=== PATIENT | female | born 1940 | race Caucasian/White ===

== ENCOUNTER 2016-11-08 08:20 | Outpatient (CLI) | payer MEDICARE, OTHER ==
[2016-11-08 09:09] LABS: BASOPHILS # (AUTO) 0.1 10^3/uL (0.0-0.1); BASOPHILS % (AUTO) 1.2 %; EOSINOPHILS # (AUTO) 0.2 10^3/uL (0.0-0.7); EOSINOPHILS % (AUTO) 3.6 %; HCT - HEMATOCRIT 42.5 % (37.0-47.0); HGB - HEMOGLOBIN 14.9 g/dL (12.0-16.0); LYMPHOCYTES # (AUTO) 2.7 10^3/uL (1.5-3.5); LYMPHOCYTES % (AUTO) 41.5 %; MEAN CORPUSCULAR HEMOGLOBIN 31.4 pg (27.0-31.0); MEAN CORPUSCULAR VOLUME 89.9 fL (81.0-99.0); MEAN PLATELET VOLUME 6.8 fL (7.9-10.8); MONOCYTES # (AUTO) 0.5 10^3/uL (0.0-1.0); MONOCYTES % (AUTO) 8.4 %; NEUTROPHILS % (AUTO) 45.3 %; RED BLOOD COUNT 4.72 10^6/uL (4.20-5.40); RED CELL DISTRIBUTION WIDTH 13.3 % (12.0-15.0); UNCORRECTED WHITE BLOOD COUNT 6.5 x10^3/uL; WHITE BLOOD COUNT 6.5 x10^3/uL (4.8-10.8)
[2016-11-08 09:23] LABS: HEMOGLOBIN A1C 0.56 g/dL
[2016-11-08 09:27] LABS: ALBUMIN/GLOBULIN RATIO 1.6 (1.0-2.2); BILIRUBIN,TOTAL 0.8 mg/dL (0.2-1.0); BUN - BLOOD UREA NITROGEN 14 mg/dL (6-20); CALCIUM 9.4 mg/dL (8.5-10.3); CARBON DIOXIDE - CO2 27 mmol/L (21-32); CHLORIDE 103 mmol/L (101-111); CHOL/HDL RATIO 3.3 (<4.4); CHOLESTEROL 160 mg/dL; CREATININE 0.7 mg/dL (0.4-1.0); GFR - MDRD 82 (>89); GLUCOSE 103 mg/dL (70-100); HDL CHOLESTEROL 48 mg/dL; LDL/HDL RATIO 1.9 (<4.4); SODIUM 137 mmol/L (135-145); TOTAL PROTEIN 6.5 g/dL (6.7-8.2); TRIGLYCERIDES 94 mg/dL; VLDL CHOLESTEROL 19 mg/dL
== END 2016-11-08 08:21 | disposition home or self-care (01) ==
LOC: LAB 08:20
PROVIDERS: ATTEND Nurse Practitioner Primary Care
DX: I10 Essential (primary) hypertension (principal); R73.09 Other abnormal glucose; E78.2 Mixed hyperlipidemia
CPT/HCPCS: 36415; 80053; 80061; 83036; 84443; 85025

== ENCOUNTER 2016-11-22 08:35 | Outpatient (CLI) | payer MEDICARE, OTHER ==
--- NOTE | 2016-11-23 19:50 | Mammography Report ---
DIGITAL SCREENING MAMMOGRAM: 11/22/2016 CLINICAL INDICATION: A 76-year-old for screening. COMPARISON: 05/2014, 11/2012, 08/2011, 06/2009, 05/2008, 02/2007. TECHNIQUE: Routine CC and MLO projections were obtained of the breasts. The breasts again demonstrate heterogeneously dense fibroglandular parenchyma bilaterally. A few pun ctate, typically benign calcifications are present. No suspicious masses, clustered microcalcificati ons, or regions of architectural distortion are identified. IMPRESSION: BENIGN FINDINGS. RECOMMENDATION: ROUTINE ANNUAL SCREENING UNLESS OTHERWISE CLINICALLY INDICATED. BIRADS CATEGORY: 2, BENIGN FINDINGS. STANDARD QUALIFYING STATEMENTS 1. This examination was reviewed with the aid of Computed-Aided Detection (CAD). 2. A negative or benign imaging report should not delay biopsy if clinically suspicious findings are present. Consider surgical consultation if warranted. More than 5% of cancers are not identified b y imaging. 3. Dense breasts may obscure an underlying neoplasm. JOB #: [id number] EXT JOB #:[id number]
== END 2016-11-22 08:36 | disposition home or self-care (01) ==
LOC: DI 08:35
PROVIDERS: ATTEND Nurse Practitioner Primary Care
DX: Z12.31 Encounter for screening mammogram for malignant neoplasm of breast (principal)
CPT/HCPCS: 77067

== ENCOUNTER 2017-03-20 09:25 | Day surgery (SDC) | payer MEDICARE, OTHER ==
[2017-03-20] MEDS ORDERED: LACTATED RINGERS 1,000 ML IV ONE (10:00)
[2017-03-20] MEDS ORDERED: GLUCAGON 1 MG/ML VIAL IM ONE (10:48)
[2017-03-20] MEDS ORDERED: fentaNYL 100 MCG/2 ML VIAL IVP ONE (10:48)
[2017-03-20] MEDS ORDERED: MIDAZOLAM 2 MG/2 ML VIAL IVP ONE (10:48)
[2017-03-20 11:41] VITALS: BP 103/62
== END 2017-03-20 09:26 | disposition home or self-care (01) ==
LOC: SDS 09:25
PROVIDERS: ATTEND Surgery
PROC: 0DBL8ZX Excision of Transverse Colon, Via Natural or Artificial Opening Endoscopic, Diagnostic (ICD-10-PCS; principal; 2017-03-20 10:30)
DX: Z12.11 Encounter for screening for malignant neoplasm of colon (principal); D12.3 Benign neoplasm of transverse colon; Z80.0 Family history of malignant neoplasm of digestive organs; K57.30 Diverticulosis of large intestine without perforation or abscess without bleeding; K64.8 Other hemorrhoids; I10 Essential (primary) hypertension; Z79.82 Long term (current) use of aspirin
CPT/HCPCS: 45380; J7120

== ENCOUNTER 2017-11-13 07:57 | Outpatient (CLI) | payer MEDICARE, OTHER ==
[2017-11-13 08:42] LABS: BASOPHILS % (AUTO) 0.3 %; EOSINOPHILS # (AUTO) 0.2 10^3/uL (0.0-0.7); EOSINOPHILS % (AUTO) 2.6 %; HGB - HEMOGLOBIN 14.9 g/dL (12.0-16.0); LYMPHOCYTES # (AUTO) 2.2 10^3/uL (1.5-3.5); LYMPHOCYTES % (AUTO) 23.2 %; MEAN CORPUSCULAR HEMOGLOBIN 31.6 pg (27.0-31.0); MEAN CORPUSCULAR HGB CONC 35.2 g/dL (32.0-36.0); MEAN CORPUSCULAR VOLUME 89.6 fL (81.0-99.0); MEAN PLATELET VOLUME 7.2 fL (7.9-10.8); MONOCYTES # (AUTO) 0.6 10^3/uL (0.0-1.0); MONOCYTES % (AUTO) 6.8 %; NEUTROPHILS # (AUTO) 6.3 10^3/uL (1.5-6.6); NEUTROPHILS % (AUTO) 67.1 %; PLT - PLATELET COUNT 290 10^3/uL (130-450); RED BLOOD COUNT 4.72 10^6/uL (4.20-5.40); RED CELL DISTRIBUTION WIDTH 13.2 % (12.0-15.0); WHITE BLOOD COUNT 9.3 x10^3/uL (4.8-10.8)
[2017-11-13 09:07] LABS: ALBUMIN/GLOBULIN RATIO 1.5 (1.0-2.2); ALKALINE PHOSPHATASE 71 IU/L (42-121); ALT ALANINE AMINOTRANSFERASE 23 IU/L (10-60); AST ASPARTATE AMINOTRANSFERASE 21 IU/L (10-42); BILIRUBIN,TOTAL 0.9 mg/dL (0.2-1.0); BUN - BLOOD UREA NITROGEN 14 mg/dL (6-20); CALCIUM 9.4 mg/dL (8.5-10.3); CARBON DIOXIDE - CO2 29 mmol/L (21-32); CHLORIDE 104 mmol/L (101-111); CHOL/HDL RATIO 3.5 (<4.4); CHOLESTEROL 149 mg/dL; CREATININE 0.6 mg/dL (0.4-1.0); GFR - MDRD 97 (>89); GLUCOSE 103 mg/dL (70-100); HDL CHOLESTEROL 43 mg/dL; LDL CHOLESTEROL,CALCULATED 76 mg/dL; LDL/HDL RATIO 1.8 (<4.4); SODIUM 139 mmol/L (135-145); TOTAL PROTEIN 6.6 g/dL (6.7-8.2); VLDL CHOLESTEROL 30 mg/dL
[2017-11-13 09:31] LABS: HB2 TOTAL 16.2 g/dL; HEMOGLOBIN A1C 0.53 g/dL; HEMOGLOBIN A1C % 5.1 % (4.6-6.2)
== END 2017-11-13 07:58 | disposition home or self-care (01) ==
LOC: LAB 07:57
PROVIDERS: ATTEND Nurse Practitioner Primary Care
DX: R73.01 Impaired fasting glucose (principal); Z79.899 Other long term (current) drug therapy; I10 Essential (primary) hypertension; E78.5 Hyperlipidemia, unspecified
CPT/HCPCS: 36415; 80053; 80061; 83036; 83721; 85025

== ENCOUNTER 2018-12-18 08:30 | Outpatient (CLI) | payer MEDICARE, OTHER ==
[2018-12-18 09:13] LABS: BASOPHILS # (AUTO) 0.1 10^3/uL (0.0-0.1); BASOPHILS % (AUTO) 1.1 %; EOSINOPHILS # (AUTO) 0.2 10^3/uL (0.0-0.7); EOSINOPHILS % (AUTO) 2.8 %; HGB - HEMOGLOBIN 14.4 g/dL (12.0-16.0); LYMPHOCYTES # (AUTO) 2.2 10^3/uL (1.5-3.5); LYMPHOCYTES % (AUTO) 38.9 %; MEAN CORPUSCULAR HEMOGLOBIN 31.2 pg (27.0-31.0); MONOCYTES # (AUTO) 0.6 10^3/uL (0.0-1.0); MONOCYTES % (AUTO) 9.8 %; NEUTROPHILS # (AUTO) 2.7 10^3/uL (1.5-6.6); NEUTROPHILS % (AUTO) 47.2 %; PLT - PLATELET COUNT 264 10^3/uL (130-450); RED BLOOD COUNT 4.61 10^6/uL (4.20-5.40); RED CELL DISTRIBUTION WIDTH 12.8 % (12.0-15.0); WHITE BLOOD COUNT 5.7 x10^3/uL (4.8-10.8)
[2018-12-18 09:29] LABS: ALBUMIN 3.8 g/dL (3.2-5.5); ALBUMIN/GLOBULIN RATIO 1.4 (1.0-2.2); ALKALINE PHOSPHATASE 68 IU/L (42-121); ALT ALANINE AMINOTRANSFERASE 27 IU/L (10-60); AST ASPARTATE AMINOTRANSFERASE 23 IU/L (10-42); BILIRUBIN,TOTAL 0.8 mg/dL (0.2-1.0); BUN - BLOOD UREA NITROGEN 14 mg/dL (6-20); CALCIUM 9.5 mg/dL (8.5-10.3); CARBON DIOXIDE - CO2 29 mmol/L (21-32); CHLORIDE 105 mmol/L (101-111); CHOLESTEROL 140 mg/dL; CREATININE 0.6 mg/dL (0.4-1.0); GFR - MDRD 97 (>89); GLUCOSE 106 mg/dL (70-100); HDL CHOLESTEROL 46 mg/dL; LDL CHOLESTEROL,CALCULATED 74 mg/dL; LDL/HDL RATIO 1.6 (<4.4); MAGNESIUM 2.1 mg/dL (1.7-2.8); SODIUM 140 mmol/L (135-145); TOTAL PROTEIN 6.5 g/dL (6.7-8.2); VLDL CHOLESTEROL 20 mg/dL
== END 2018-12-18 08:31 | disposition home or self-care (01) ==
LOC: LAB 08:30
PROVIDERS: ATTEND Nurse Practitioner
DX: Z79.899 Other long term (current) drug therapy (principal); R73.01 Impaired fasting glucose; E78.5 Hyperlipidemia, unspecified; I10 Essential (primary) hypertension
CPT/HCPCS: 36415; 80053; 80061; 83721; 83735; 84443; 85025

== ENCOUNTER 2019-01-23 07:39 | Outpatient (CLI) | payer MEDICARE, OTHER ==
--- NOTE | 2019-01-23 09:02 | Mammography Report ---
Reason: SCREENING MAMMO Procedure Date: 01/23/2019 Accession Number: [id number] / [id number] Procedure: STU - Screening Mammo w/Alphonse CPT Code: FULL RESULT: EXAM: Screening Mammo w/Alphonse DATE: 01/23/2019 8:15 AM CLINICAL HISTORY: Screening encounter. Family history of breast cancer in the daughter at the age of 53. TECHNIQUE: (B) - Bilateral CC and MLO views were obtained. COMPARISON: 11/22/2016 through 07/06/2009. PARENCHYMAL PATTERN: (D) - The breast(s) demonstrate(s) heterogeneously dense fibroglandular parenchyma. FINDINGS: There are no suspicious masses, calcifications, or areas of distortion. IMPRESSION: Negative examination. BI-RADS category 1. RECOMMENDATION: (ANNUAL) - Recommend routine annual screening mammography. BI-RADS CATEGORY: (1) - Negative. STANDARD QUALIFYING STATEMENTS: 1. This examination was not reviewed with the aid of Computer-Aided Detection (CAD). 2. A negative or benign imaging report should not preclude biopsy if clinically suspicious findings are present. 3. Dense breasts may obscure an underlying neoplasm. 4. This examination was reviewed with the aid of 3D breast imaging (tomosynthesis).
== END 2019-01-23 07:40 | disposition home or self-care (01) ==
LOC: DI 07:39
PROVIDERS: ATTEND Nurse Practitioner
DX: Z12.31 Encounter for screening mammogram for malignant neoplasm of breast (principal)
CPT/HCPCS: 77063; 77067

== ENCOUNTER 2019-01-23 07:42 | Outpatient (CLI) | payer MEDICARE, OTHER ==
--- NOTE | 2019-01-23 09:59 | DEXA Report ---
Reason: MENOPAUSE Procedure Date: 01/23/2019 Accession Number: [id number] / [id number] Procedure: DEX - Dexa Spine and/or Hip CPT Code: FULL RESULT: EXAM: Dexa Spine and/or Hip DATE: 01/23/2019 8:22 AM CLINICAL HISTORY: MENOPAUSE TECHNIQUE: Dual energy x-ray absorptiometry (DXA) was performed on a 2080 [employer] System. Regions measured are the AP Spine, femoral neck, and if needed forearm. COMPARISON: 10/18/2015. In accordance with the International Society for Clinical Densitometry (ISCD) guidelines, data from previous exams may be reanalyzed using current recommendations and techniques. This is done to allow a more accurate basis for comparison with the current study. FINDINGS: The data for the lumbar spine is as follows: BMD (g/cm/cm) T-SCORE Z-SCORE REGION L1 0.988 -1.2 0.0 L2 1.101 -0.8 0.3 L3 1.221 0.2 1.3 L4 1.303 0.9 2.0 TOTAL 1.162 -0.2 1.0 NOTE: All evaluable vertebrae are used for classification The data for the hip is as follows: BMD (g/cm/cm) T-SCORE Z-SCORE REGION Neck 1.057 0.1 1.7 TOTAL 1.027 0.2 1.5 NOTE: The femoral neck or total proximal femur, whichever is lowest, is used for classification. IMPRESSION: THE WHO CLASSIFICATION BASED ON THE INTERNATIONAL REFERENCE STANDARD IS NORMAL. THE FRACTURE RISK IS NOT INCREASED. RECOMMENDATION: Patients with diagnosis of osteoporosis or osteopenia should have regular bone mineral density assessment. For those eligible for Medicare, routine testing is allowed once every 2 years. Testing frequency can be increased for patients who have rapidly progressing disease or for those who are receiving medical therapy to restore bone mass. COMMENT: World Health Organization (WHO) definitions for osteoporosis and osteopenia: NORMAL BMD: T-score at -1.0 or higher, fracture risk is low OSTEOPENIA BMD: T-score between -1.0 and -2.5, fracture risk is increased. OSTEOPOROSIS BMD: T-score at -2.5 or lower, fracture risk is high. National Osteoporosis Foundation recommends: 1. Obtain adequate dietary calcium (at least 1200 mg per day) and vitamin D (400-800 international units per day). 2. Participate, as appropriate, in regular weightbearing and muscle-strengthening exercise. 3. Avoid tobacco use and reduce alcohol and caffeine intake. 4. For more detailed information see the website at www.NOF.org.
== END 2019-01-23 07:43 | disposition home or self-care (01) ==
LOC: DI 07:42
PROVIDERS: ATTEND Nurse Practitioner
DX: Z78.0 Asymptomatic menopausal state (principal)
CPT/HCPCS: 77080

== ENCOUNTER 2021-01-11 15:54 | Outpatient (CLI) | payer MEDICARE, OTHER ==
--- NOTE | 2021-01-12 10:20 | Ultrasound Report ---
PROCEDURE: Retroperitoneal INDICATIONS: BILATERAL RENAL CYSTS TECHNIQUE: Real-time scanning was performed of the retroperitoneal organs, with image documentation. COMPARISON: None. FINDINGS: Kidneys: Kidneys are normal in size. Right kidney measures 11.8 cm long; left kidney measures 12 po int cm long. Right renal cortical thickness is 1.4 cm; left renal cortical thickness is 2.0 cm. No solid masses, hydronephrosis, or nephrolithiasis. There are bilateral renal cysts, measuring up to 2 .7 cm on the right and up to 6.1 x 5.2 x 5.9 cm on the left. Right renal cyst is not well seen second riri to body habitus and bowel gas. Prevoid bladder volume measures 199 cc. The postvoid residual measures 18 cc. IMPRESSION: Bilateral renal cysts, not well sonographically visualized as above. No hydronephrosis. Reviewed by: Cameron Ortega MD on 01/12/2021 10:19 AM PDT Approved by: Cameron Ortega MD on 01/12/2021 10:19 AM PDT Station ID: [id number]
== END 2021-01-11 15:55 | disposition home or self-care (01) ==
LOC: DI 15:54
PROVIDERS: ATTEND Family Medicine
DX: N28.1 Cyst of kidney, acquired (principal)

== ENCOUNTER 2021-08-06 10:04 | Outpatient (CLI) | payer MEDICARE, OTHER ==
[2021-08-06 14:40] LABS: BASOPHILS % (AUTO) 0.6 %; EOSINOPHILS # (AUTO) 0.2 10^3/uL (0.0-0.7); EOSINOPHILS % (AUTO) 2.6 %; HCT - HEMATOCRIT 42.8 % (37.0-47.0); HGB - HEMOGLOBIN 14.2 g/dL (12.0-16.0); MEAN CORPUSCULAR HGB CONC 33.2 g/dL (32.0-36.0); MEAN CORPUSCULAR VOLUME 90.3 fL (81.0-99.0); MEAN PLATELET VOLUME 9.3 fL (7.9-10.8); MONOCYTES # (AUTO) 0.8 10^3/uL (0.0-1.0); MONOCYTES % (AUTO) 11.7 %; NEUTROPHILS # (AUTO) 3.5 10^3/uL (1.5-6.6); NEUTROPHILS % (AUTO) 53.8 %; PLT - PLATELET COUNT 298 10^3/uL (130-450); RED BLOOD COUNT 4.74 10^6/uL (4.20-5.40); RED CELL DISTRIBUTION WIDTH 12.7 % (12.0-15.0); WHITE BLOOD COUNT 6.6 x10^3/uL (4.8-10.8)
[2021-08-06 15:02] LABS: ALBUMIN 3.8 g/dL (3.2-5.5); ALBUMIN/GLOBULIN RATIO 1.4 (1.0-2.2); ALKALINE PHOSPHATASE 73 IU/L (42-121); ALT ALANINE AMINOTRANSFERASE 26 IU/L (10-60); AST ASPARTATE AMINOTRANSFERASE 24 IU/L (10-42); BILIRUBIN,TOTAL 0.5 mg/dL (0.2-1.0); BUN - BLOOD UREA NITROGEN 15 mg/dL (6-20); CALCIUM 9.3 mg/dL (8.5-10.3); CARBON DIOXIDE - CO2 25 mmol/L (21-32); CHLORIDE 101 mmol/L (101-111); CHOL/HDL RATIO 3.5 (<4.4); CHOLESTEROL 152 mg/dL; CREATININE 0.6 mg/dL (0.4-1.0); GFR - MDRD 97 (>89); GLUCOSE 106 mg/dL (70-100); HDL CHOLESTEROL 44 mg/dL; LDL CHOLESTEROL,CALCULATED 76 mg/dL; LDL/HDL RATIO 1.7 (<4.4); POTASSIUM 3.9 mmol/L (3.5-5.0); SODIUM 135 mmol/L (135-145); TOTAL PROTEIN 6.6 g/dL (6.7-8.2); TRIGLYCERIDES 160 mg/dL; VLDL CHOLESTEROL 32 mg/dL
[2021-08-06 15:09] LABS: THYROID STIMULATING HORMONE 1.32 uIU/mL (0.34-5.60)
[2021-08-06 21:44] LABS: ESTIMATED AVERAGE GLUCOSE 103 mg/dL (70-100); HEMOGLOBIN A1c% 5.2 % (4.27-6.07)
== END 2021-08-06 10:05 | disposition home or self-care (01) ==
LOC: LAB.N 10:04
PROVIDERS: ATTEND Family Medicine
DX: G43.909 Migraine, unspecified, not intractable, without status migrainosus (principal); R52 Pain, unspecified; R73.01 Impaired fasting glucose; E78.5 Hyperlipidemia, unspecified; I10 Essential (primary) hypertension
CPT/HCPCS: 36415; 80053; 80061; 83036; 83721; 84443; 85025

== ENCOUNTER 2021-12-06 11:14 | Outpatient (CLI) | payer MEDICARE, OTHER ==
--- NOTE | 2021-12-07 11:09 | Mammography Report ---
BILATERAL DIGITAL SCREENING MAMMOGRAM 3D/2D: 12/06/2021 CLINICAL: Routine screening. Comparison is made to exams dated: 01/23/2019 mammogram, 11/22/2016 mammogram, 05/14/2014 mammogram, an d 11/08/2012 mammogram - [facility]. Both breasts are heterogeneously dense, which may obscure small masses (category c / 51-75% glandula r tissue). No significant masses, calcifications, or other findings are seen in either breast. There has been no significant interval change. IMPRESSION: NEGATIVE There is no mammographic evidence of malignancy. A 1 year screening mammogram is recommended. Based on the Tyrer Cuzick model (a risk assessment model) the patients lifetime risk is 4.6% and her 10 year risk is 0.0%. According to the ACR, ACS, and NCCN guidelines, an annual breast MRI exam aj g with mammogram is recommended if the patients lifetime risk is 20% or greater. This exam was interpreted at Station ID: [id number]. NOTE: For mammograms, a report in lay terms will be sent to the patient. Approximately 15% of breast malignancies will not be visualized mammographically. In the management of a palpable breast mass, a negative mammogram must not discourage biopsy of a clinically suspicious lesion. Electronically Signed By: Lee Brantley M.D. [email or web address]:12/06/2021 13:16:33 ACR BI-RADS Category 1: Negative 3341F PARENCHYMAL PATTERN: (D) - The breast(s) demonstrate(s) heterogeneously dense fibroglandular ej carroll. BI-RADS CATEGORY: (1) - 1 RECOMMENDATION: (ANNUAL) - Recommend routine annual screening mammography. [id number] 1 year screening LATERALITY: (B)
== END 2021-12-06 11:15 | disposition home or self-care (01) ==
LOC: DI 11:14
PROVIDERS: ATTEND Family Medicine
DX: Z12.31 Encounter for screening mammogram for malignant neoplasm of breast (principal)

== ENCOUNTER 2022-01-31 08:54 | Outpatient (CLI) | payer MEDICARE, OTHER ==
[2022-01-31 09:09] LABS: BASOPHILS % (AUTO) 0.6 %; EOSINOPHILS # (AUTO) 0.2 10^3/uL (0.0-0.7); EOSINOPHILS % (AUTO) 2.7 %; HCT - HEMATOCRIT 45.8 % (37.0-47.0); HGB - HEMOGLOBIN 15.4 g/dL (12.0-16.0); LYMPHOCYTES # (AUTO) 2.5 10^3/uL (1.5-3.5); LYMPHOCYTES % (AUTO) 35.6 %; MEAN CORPUSCULAR HEMOGLOBIN 30.4 pg (27.0-31.0); MEAN CORPUSCULAR HGB CONC 33.6 g/dL (32.0-36.0); MEAN CORPUSCULAR VOLUME 90.5 fL (81.0-99.0); MEAN PLATELET VOLUME 8.6 fL (7.9-10.8); MONOCYTES # (AUTO) 0.8 10^3/uL (0.0-1.0); MONOCYTES % (AUTO) 10.8 %; NEUTROPHILS # (AUTO) 3.5 10^3/uL (1.5-6.6); PLT - PLATELET COUNT 271 10^3/uL (130-450); RED BLOOD COUNT 5.06 10^6/uL (4.20-5.40); RED CELL DISTRIBUTION WIDTH 12.9 % (12.0-15.0)
[2022-01-31 09:34] LABS: ALBUMIN/GLOBULIN RATIO 1.5 (1.0-2.2); ALKALINE PHOSPHATASE 81 IU/L (42-121); ALT ALANINE AMINOTRANSFERASE 24 IU/L (10-60); AST ASPARTATE AMINOTRANSFERASE 21 IU/L (10-42); BILIRUBIN,TOTAL 0.8 mg/dL (0.2-1.0); BUN - BLOOD UREA NITROGEN 16 mg/dL (6-20); CALCIUM 9.8 mg/dL (8.5-10.3); CARBON DIOXIDE - CO2 29 mmol/L (21-32); CHLORIDE 101 mmol/L (101-111); CHOL/HDL RATIO 3.9 (<4.4); CHOLESTEROL 153 mg/dL; CREATININE 0.6 mg/dL (0.4-1.0); GFR - MDRD 96 (>89); GLUCOSE 105 mg/dL (70-100); HDL CHOLESTEROL 39 mg/dL; LDL CHOLESTEROL,CALCULATED 93 mg/dL; LDL/HDL RATIO 2.4 (<4.4); POTASSIUM 4.3 mmol/L (3.5-5.0); SODIUM 139 mmol/L (135-145); TOTAL PROTEIN 6.7 g/dL (6.7-8.2); TRIGLYCERIDES 104 mg/dL; VLDL CHOLESTEROL 21 mg/dL
[2022-01-31 09:42] LABS: THYROID STIMULATING HORMONE 2.85 uIU/mL (0.34-5.60)
[2022-01-31 12:49] LABS: ESTIMATED AVERAGE GLUCOSE 108 mg/dL (70-100); HEMOGLOBIN A1c% 5.4 % (4.27-6.07)
== END 2022-01-31 08:55 | disposition home or self-care (01) ==
LOC: LAB 08:54
PROVIDERS: ATTEND Family Medicine
DX: I10 Essential (primary) hypertension (principal); M85.80 Other specified disorders of bone density and structure, unspecified site; D86.3 Sarcoidosis of skin; K57.90 Diverticulosis of intestine, part unspecified, without perforation or abscess without bleeding; K58.9 Irritable bowel syndrome, unspecified; R73.01 Impaired fasting glucose; E78.5 Hyperlipidemia, unspecified
CPT/HCPCS: 36415; 80053; 80061; 83036; 83721; 84443; 85025

== ENCOUNTER 2022-06-27 13:28 | Outpatient (CLI) | payer MEDICARE, OTHER ==
--- NOTE | 2022-06-27 14:13 | XRAY Report ---
PROCEDURE: Chest 2 View X-Ray INDICATIONS: CHRONIC COUGH TECHNIQUE: 2 views of the chest were acquired. COMPARISON: None. FINDINGS: Surgical changes and devices: Fixation hardware in visualized lumbar spine is seen.. Lungs and pleura: No pleural effusions or pneumothorax. Lungs are clear. Mediastinum: Mediastinal contours are normal. Heart size is mildly enlarged. Bones and chest wall: No suspicious bony abnormalities. Soft tissues appear unremarkable. IMPRESSION: No acute cardiopulmonary pathology. Reviewed by: Raffi Bell MD on 06/27/2022 1:12 PM AKDT Approved by: Raffi Bell MD on 06/27/2022 1:12 PM AKDT Station ID: [id number]
== END 2022-06-27 13:29 | disposition home or self-care (01) ==
LOC: DI 13:28
PROVIDERS: ATTEND Physician Assistant
DX: R05.3 Chronic cough (principal)

== ENCOUNTER 2022-10-05 06:51 | Day surgery (SDC) | payer MEDICARE, OTHER ==
[2022-10-05] MEDS ORDERED: LACTATED RINGERS 1,000 ML IV ONE ×2 (06:53→08:14)
[2022-10-05] MEDS ORDERED: PROPOFOL 500 MG/50 ML 500 MG/50 ML VIAL ONE (06:55)
--- NOTE | 2022-10-05 07:28 | ANESTHESIA ---
Pre-Anesthesia VS, & Labs - Diagnosis hx colon polyps - Procedure colonoscopy Vital Signs: Temp Pulse Resp BP Pulse Ox O2 Flow Rate 36.0 C L 62 16 138/80 H 96 0 10/05/22 07:03 10/05/22 07:03 10/05/22 07:03 10/05/22 07:03 10/05/22 07:03 10/05/22 07:03 Height: 5 ft 5 in Weight (kg): 82 kg Body Mass Index: 30.0 BMI Classification: Obese - NPO >8 hours - Is Patient ?: No - Lab Results Lab results reviewed: Yes Home Medications and Allergies Ascorbic Acid [Vitamin C] 500 mg PO DAILY 03/19/17 Atorvastatin Calcium 40 mg PO DAILY 03/19/17 Calcium Carbonate/Vitamin D3 [Calcium 600 + Vit D 400 Tablet] 1 each PO DAILY 03/19/17 Losartan [Cozaar] 25 mg PO DAILY 03/19/17 Multivitamin [Multiple Vitamins] 1 each PO DAILY 03/19/17 Propranolol [Inderal] 20 mg PO BID 03/19/17 Allergies/Adverse Reactions: Allergies Allergy/AdvReac Type Severity Reaction Status Date / Time Penicillins Allergy Rash Verified 10/04/22 12:14 tetracycline Allergy Rash Verified 10/04/22 12:14 Anes History & Medical History - Anesthetic History Anesthesia Complications: reports: No previous complications Family history of Anesthesia Complications: Denies Family history of Malignant Hyperthermia: Denies - Medical History Cardiovascular: reports: Hypertension, High cholesterol, Murmur Pulmonary: reports: None Gastrointestinal: reports: GERD Urinary: reports: None Endocrine/Autoimmune: reports: Other Blood Disorders: reports: None - Surgical History General: reports: Appendectomy, Colonoscopy Eyes Ears Nose Throat (EENT): reports: Tonsil/Adenoidectomy Gynecologic: reports: section, Hysterectomy Orthopedic: reports: Knee replacement Exam General: Alert, Oriented x3, Cooperative Dental: WNL Mouth Openin Fingerbreadth Neck Mobility: Normal Mallampati classification: II Thyromental Distance: 4-6 cm Respiratory: Lungs clear Cardiovascular: Regular rate Plan Anesthesia Type: MAC Consent for Procedure(s) Verified and Reviewed: Yes Code Status: Attempt Resuscitation ASA classification: 2-Mild systemic disease Is this case an emergency?: No
[2022-10-05] MEDS ORDERED: ePHEDrine 50 MG/ML VIAL IVP ONE (08:02)
[2022-10-05 08:41] VITALS: BP 115/64
--- NOTE | 2022-10-05 09:06 | ANESTHESIA POST OP EVALUATION ---
Anesthesia Post Eval - Post Anesthesia Eval Vitals: Last Vital Signs Temp 36.2 C L 10/05/22 08:14 Pulse 70 10/05/22 08:38 Resp 12 10/05/22 08:38 BP 115/64 10/05/22 08:38 Pulse Ox 95 10/05/22 08:38 O2 Flow Rate 0 10/05/22 07:03 CV Function Including HR & BP: Stable Pain Control: Satisfactory Nausea & Vomiting: Negative Mental Status: Baseline Respiratory Status: Airway Patent Hydration Status: Satisfactory Anesthesia Complications: None
== END 2022-10-05 06:52 | disposition home or self-care (01) ==
LOC: SDS 06:51
PROVIDERS: ATTEND Surgery
PROC: 0DBK8ZX Excision of Ascending Colon, Via Natural or Artificial Opening Endoscopic, Diagnostic (ICD-10-PCS; principal; 2022-10-05 08:30)
DX: Z12.11 Encounter for screening for malignant neoplasm of colon (principal); K63.5 Polyp of colon; K57.30 Diverticulosis of large intestine without perforation or abscess without bleeding; Z80.0 Family history of malignant neoplasm of digestive organs; I10 Essential (primary) hypertension; E66.9 Obesity, unspecified; Z68.30 Body mass index [BMI] 30.0-30.9, adult
CPT/HCPCS: 45380; J7120

== ENCOUNTER 2022-12-25 11:08 | Outpatient (CLI) | payer MEDICARE, OTHER ==
--- NOTE | 2022-12-26 09:30 | Mammography Report ---
BILATERAL DIGITAL SCREENING MAMMOGRAM 3D/2D: 12/25/2022 CLINICAL: Routine screening. Comparison is made to exams dated: 12/06/2021 mammogram, 01/23/2019 mammogram, 11/22/2016 mammogram, mammogram, and 11/08/2012 mammogram - [facility]. Both breasts are heterogeneously dense, which may obscure small masses (category c / 51-75% glandular tissue). There is a possible developing irregular high density asymmetry with a spiculated margin in the left breast at 4 o'clock anterior depth. This is more prominent. No other significant masses, calcifications, or other findings are seen in either breast. IMPRESSION: INCOMPLETE: NEEDS ADDITIONAL IMAGING EVALUATION The possible developing irregular high density asymmetry in the left breast is indeterminate. Additi onal views with possible ultrasound are recommended. Based on the Tyrer Cuzick model (a risk assessment model) the patients lifetime risk is 3.9% and her 10 year risk is 0.0%. According to the ACR, ACS, and NCCN guidelines, an annual breast MRI exam aj g with mammogram is recommended if the patients lifetime risk is 20% or greater. This exam was interpreted at Station ID: [id number]. NOTE: For mammograms, a report in lay terms will be sent to the patient. Approximately 15% of breast malignancies will not be visualized mammographically. In the management of a palpable breast mass, a negative mammogram must not discourage biopsy of a clinically suspicious lesion. Electronically Signed By: Ya [email or web address]/penrad:12/25/2022 16:33:44 ACR BI-RADS Category 0: Incomplete 3340F PARENCHYMAL PATTERN: (D) - The breast(s) demonstrate(s) heterogeneously dense fibroglandular parenchy ma. BI-RADS CATEGORY: (0) - 0 Mammo and [place] [id number] Immediate follow-up LATERALITY: (B)
== END 2022-12-25 11:09 | disposition home or self-care (01) ==
LOC: DI 11:08
DX: Z12.31 Encounter for screening mammogram for malignant neoplasm of breast (principal); R92.8 Other abnormal and inconclusive findings on diagnostic imaging of breast

== ENCOUNTER 2023-01-16 10:45 | Outpatient (CLI) | payer MEDICARE, OTHER ==
--- NOTE | 2023-01-16 16:21 | Mammography Report ---
UNILATERAL LEFT DIGITAL DIAGNOSTIC MAMMOGRAM 3D/2D WITH SPOT COMPRESSION: 01/16/2023 CLINICAL: Patient returns today to evaluate a focal asymmetry in the left breast. Comparison is made to exams dated: 12/25/2022 mammogram, 12/06/2021 mammogram, 01/23/2019 mammogram, mammogram, and 05/14/2014 mammogram - [facility]. The left breast is heterogeneously dense, which may obscure small masses (category c / 51-75% glandul ar tissue). There is a possible asymmetry in the left breast at 4 o'clock anterior depth. This is not seen in ad ditional views. No other significant masses or calcifications are seen in the breast. IMPRESSION: NEGATIVE There is no mammographic evidence of malignancy. The possible asymmetry in the left breast is consistent with fibroglandular tissue and is benign. A 1 year screening mammogram is recommended. Based on the Tyrer Cuzick model (a risk assessment model) the patients lifetime risk is 3.9% and her 10 year risk is 0.0%. According to the ACR, ACS, and NCCN guidelines, an annual breast MRI exam aj g with mammogram is recommended if the patients lifetime risk is 20% or greater. This exam was interpreted at Station ID: [id number]. NOTE: For mammograms, a report in lay terms will be sent to the patient. Approximately 15% of breast malignancies will not be visualized mammographically. In the management of a palpable breast mass, a negative mammogram must not discourage biopsy of a clinically suspicious lesion. Electronically Signed By: Craig Hernández M.D. slc/:01/16/2023 11:30:02 ACR BI-RADS Category 1: Negative 3341F PARENCHYMAL PATTERN: (D) - The breast(s) demonstrate(s) heterogeneously dense fibroglandular ej carroll. BI-RADS CATEGORY: (1) - 1 Mammogram [id number] 1 year screening LATERALITY: (B)
== END 2023-01-16 10:46 | disposition home or self-care (01) ==
LOC: DI 10:45
PROVIDERS: ATTEND Family Medicine
DX: R92.8 Other abnormal and inconclusive findings on diagnostic imaging of breast (principal); R92.332 Mammographic heterogeneous density, left breast

== ENCOUNTER 2023-05-24 08:44 | Outpatient (CLI) | payer MEDICARE, OTHER ==
[2023-05-24 09:04] LABS: BASOPHILS # (AUTO) 0.1 10^3/uL (0.0-0.1); BASOPHILS % (AUTO) 0.9 %; EOSINOPHILS # (AUTO) 0.2 10^3/uL (0.0-0.7); HCT - HEMATOCRIT 42.9 % (37.0-47.0); HGB - HEMOGLOBIN 14.4 g/dL (12.0-16.0); LYMPHOCYTES # (AUTO) 2.2 10^3/uL (1.5-3.5); MEAN CORPUSCULAR HGB CONC 33.6 g/dL (32.0-36.0); MEAN CORPUSCULAR VOLUME 92.5 fL (81.0-99.0); MEAN PLATELET VOLUME 8.5 fL (7.9-10.8); MONOCYTES # (AUTO) 0.6 10^3/uL (0.0-1.0); MONOCYTES % (AUTO) 11.1 %; NEUTROPHILS # (AUTO) 2.5 10^3/uL (1.5-6.6); NEUTROPHILS % (AUTO) 44.6 %; PLT - PLATELET COUNT 246 10^3/uL (130-450); RED BLOOD COUNT 4.64 10^6/uL (4.20-5.40); RED CELL DISTRIBUTION WIDTH 12.6 % (12.0-15.0); WHITE BLOOD COUNT 5.6 x10^3/uL (4.8-10.8)
[2023-05-24 09:20] LABS: ALBUMIN 4.1 g/dL (3.2-5.5); ALBUMIN/GLOBULIN RATIO 1.7 (1.0-2.2); ALKALINE PHOSPHATASE 73 IU/L (42-121); ALT ALANINE AMINOTRANSFERASE 18 IU/L (10-60); AST ASPARTATE AMINOTRANSFERASE 17 IU/L (10-42); BILIRUBIN,TOTAL 0.6 mg/dL (0.2-1.0); BUN - BLOOD UREA NITROGEN 17 mg/dL (6-20); CALCIUM 9.4 mg/dL (8.5-10.3); CARBON DIOXIDE - CO2 31 mmol/L (21-32); CHLORIDE 105 mmol/L (101-111); CHOL/HDL RATIO 3.2 (<4.4); CHOLESTEROL 136 mg/dL; CREATININE 0.7 mg/dL (0.6-1.3); GFR - MDRD 81 (>89); GLUCOSE 102 mg/dL (74-104); HDL CHOLESTEROL 43 mg/dL; LDL CHOLESTEROL,CALCULATED 67 mg/dL; LDL/HDL RATIO 1.6 (<4.4); POTASSIUM 4.1 mmol/L (3.5-4.5); SODIUM 139 mmol/L (135-145); TOTAL PROTEIN 6.5 g/dL (6.4-8.9); TRIGLYCERIDES 132 mg/dL (48-352); VLDL CHOLESTEROL 26 mg/dL
[2023-05-24 09:35] LABS: THYROID STIMULATING HORMONE 1.92 uIU/mL (0.34-5.60)
== END 2023-05-24 08:45 | disposition home or self-care (01) ==
LOC: LAB 08:44
PROVIDERS: ATTEND Family Medicine
DX: I10 Essential (primary) hypertension (principal); K21.9 Gastro-esophageal reflux disease without esophagitis; M43.26 Fusion of spine, lumbar region; E66.3 Overweight; M17.11 Unilateral primary osteoarthritis, right knee; E78.5 Hyperlipidemia, unspecified
CPT/HCPCS: 36415; 80053; 80061; 83721; 84443; 85025

== ENCOUNTER 2023-08-10 11:22 | Outpatient (CLI) | payer MEDICARE, OTHER ==
--- NOTE | 2023-08-10 14:42 | XRAY Report ---
PROCEDURE: Foot 3+V LT (Weight Bearing) INDICATIONS: LEFT FOOT AND ANKLE PAIN TECHNIQUE: 3 views of the foot were acquired. COMPARISON: None. FINDINGS: Bones: No acute fractures or dislocations. No suspicious bony lesions. Moderate degenerative [place] es of the 1st metatarsophalangeal joint. Scattered degenerative changes in the interphalangeal joints of the toes. Soft tissues: No suspicious soft tissue calcifications. 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 No acute osseous abnormality. Reviewed by: Krystian Lozano MD on 08/10/2023 2:40 PM PDT Approved by: Krystian Lozano MD on 08/10/2023 2:40 PM PDT Station ID: [id number]
--- NOTE | 2023-08-10 14:43 | XRAY Report ---
PROCEDURE: Ankle 3+V LT INDICATIONS: LEFT FOOT AND ANKLE PAIN TECHNIQUE: 3 views of the ankle were acquired. COMPARISON: None. FINDINGS: Bones: No acute fractures or dislocations. Ankle mortise is normally aligned. No suspicious bony l esions. Soft tissues: Mild nonspecific soft tissue edema. IMPRESSION: No acute osseous abnormality. If symptoms persist or there is continued clinical concern, further toro luation with MRI or CT may be helpful. Reviewed by: Krystian Lozano MD on 08/10/2023 2:41 PM PDT Approved by: Krystian Lozano MD on 08/10/2023 2:41 PM PDT Station ID: [id number]
== END 2023-08-10 11:23 | disposition home or self-care (01) ==
LOC: DI 11:22
PROVIDERS: ATTEND Podiatrist
DX: M19.072 Primary osteoarthritis, left ankle and foot (principal)

== ENCOUNTER 2023-08-30 06:37 | Day surgery (SDC) | payer MEDICARE, OTHER ==
[2023-08-30] MEDS: LACTATED RINGERS 1,000 ML IV ONE (06:41)
[2023-08-30] MEDS: KETOROLAC 0.45% OPHTH DROPS ONE (06:50)
[2023-08-30] MEDS: CYCLOPENTOLATE 1% OPHTH DROPS 2 ML ONE (06:50)
[2023-08-30] MEDS: PROPARACAINE 0.5% OPHTH DROPS 15 ML ONE (06:50)
[2023-08-30] MEDS: PHENYLEPHRINE 2.5% OPHTH 2 ML DROPS ONE (06:50)
[2023-08-30 07:00] VITALS: O2SAT 98
--- NOTE | 2023-08-30 07:33 | ANESTHESIA ---
Pre-Anesthesia VS, & Labs - Diagnosis left eye combined cataract - Procedure left eye cataract extraction with IOL implant Vital Signs: Temp Pulse Resp BP Pulse Ox O2 Flow Rate 36.4 C L 56 L 12 139/78 H 98 08/30/23 06:52 08/30/23 06:52 08/30/23 06:52 08/30/23 06:52 08/30/23 06:52 Height: 5 ft 5 in Weight (kg): 84 kg Body Mass Index: 30.8 BMI Classification: Obese - NPO >8 hours - Is Patient ?: No Home Medications and Allergies Home Medications: Ambulatory Orders B Complx/C/Folic/Zinc/Cup Florez/E [Iniqtnbdieln-Gsep-Gnsfpf Tab] 1 each PO DAILY 08/29/23 Famotidine 40 mg PO QPM 08/29/23 Thorsby-3 Fatty Acids [Thorsby-3] 1,000 mg PO DAILY 08/29/23 Ubidecarenone [Co Q-10] 100 mg PO DAILY 08/29/23 Ascorbic Acid [Vitamin C] 500 mg PO DAILY 03/19/17 Atorvastatin Calcium 40 mg PO DAILY 03/19/17 Losartan [Cozaar] 25 mg PO DAILY 03/19/17 Multivitamin [Multiple Vitamins] 1 each PO DAILY 03/19/17 Propranolol [Inderal] 20 mg PO BID 03/19/17 B Complx/C/Folic/Zinc/Cup Florez/E [Uxpgeamjbqrp-Bnmr-Vnvlxp Tab] 1 each PO DAILY 08/29/23 Famotidine 40 mg PO QPM 08/29/23 Thorsby-3 Fatty Acids [Thorsby-3] 1,000 mg PO DAILY 08/29/23 Ubidecarenone [Co Q-10] 100 mg PO DAILY 08/29/23 Allergies/Adverse Reactions: Allergies Allergy/AdvReac Type Severity Reaction Status Date / Time Penicillins Allergy Rash Verified 08/29/23 13:14 tetracycline Allergy Rash Verified 08/29/23 13:14 Anes History & Medical History - Anesthetic History Anesthesia Complications: reports: No previous complications - Medical History Cardiovascular: reports: Hypertension, High cholesterol, Murmur (normal echo 2015) Pulmonary: reports: None Gastrointestinal: reports: GERD Urinary: reports: None Neuro: reports: None Musculoskeletal: reports: None Blood Disorders: reports: None Skin: reports: None Smoking Status: Never smoker Psychosocial: reports: No issues indicated History of Cancer?: No - Surgical History General: reports: Appendectomy, Colonoscopy Eyes Ears Nose Throat (EENT): reports: Tonsil/Adenoidectomy Gynecologic: reports: section, Hysterectomy Orthopedic: reports: Knee replacement Exam General: Alert, Oriented x3, Cooperative, No acute distress Dental: WNL Mouth Openin Fingerbreadth Neck Mobility: Normal Mallampati classification: II Thyromental Distance: 4-6 cm Mental/Cognitive Status: Alert/Oriented X3, Normal for patient Plan Anesthesia Type: MAC Consent for Procedure(s) Verified and Reviewed: Yes Code Status: Attempt Resuscitation ASA classification: 2-Mild systemic disease Is this case an emergency?: No
[2023-08-30] MEDS ORDERED: EPINEPHrine 1 MG/ML AMP ONE (08:04)
[2023-08-30] MEDS ORDERED: TRIAMCIN/MOXIFLOX OPHTHALMIC 0.6 ML VIAL IO ONE (08:04)
[2023-08-30] MEDS ORDERED: BRIMONIDINE 0.2% OPHTH DROPS 5 ML ONE (08:04)
[2023-08-30] MEDS ORDERED: TIMOLOL 0.5% OPHTH DROPS ONE (08:04)
[2023-08-30] MEDS ORDERED: BSS/LIDOCAINE/EPINEPHRINE 1 ML VIAL ONE (08:04)
[2023-08-30] MEDS: TRIAMCIN/MOXIFLOX OPHTHALMIC 0.6 ML VIAL IO ONE (08:19)
[2023-08-30] MEDS: BRIMONIDINE 0.2% OPHTH DROPS 5 ML OPTH ONE (08:19)
[2023-08-30] MEDS: BSS/LIDOCAINE/EPINEPHRINE 1 ML SYRINGE IO ONE (08:19)
[2023-08-30] MEDS: EPINEPHrine 1 MG/ML AMP IR ONE (08:19)
[2023-08-30] MEDS: TIMOLOL 0.5% OPHTH DROPS OPTH ONE (08:19)
[2023-08-30] MEDS: VANCOMYCIN OPHTH (TOPICAL) 10 MG/ML SYRINGE TOP ONE (08:20)
[2023-08-30] MEDS: PROPARACAINE 0.5% OPHTH DROPS 15 ML LEFTEYE ONE (08:20)
[2023-08-30] MEDS ORDERED: MIDAZOLAM 2 MG/2 ML VIAL ONE (08:30)
[2023-08-30] MEDS: LACTATED RINGERS 900 ML IV ONE (08:42)
--- NOTE | 2023-08-30 08:51 | OPERATIVE REPORT ---
Operative Report - Other Other Information/Narrative: Date of Surgery: 08/30/23 Preop Dx: Visually significant cataract left eye. This was the first cataract surgery. Postop Dx: Same Procedure: Phacoemulsification with posterior chamber intraocular lens implant left eye Surgeon: Dr. 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 Best corrected visual acuity was 20/40 with glare to 20/800 vision in the left eye. Indications for surgery were: - Overall decrease in vision - Difficulty seeing words on a computer screen - Difficulty reading - Difficulty seeing words, closed captions, or game scores on TV - Difficulty driving in low light or at night - Difficulty driving at night because of headlights from other vehicles - Difficulty with glare or bright lights in any situation The patient was consented at length concerning the risks and benefits of cataract surgery after which the patient expressed a desire to proceed with surgery. Operative Procedure: The patient was taken into OR#3 and placed under monitored anesthesia care. A surgical time-out was conducted confirming correct patient, correct procedure, and correct surgical site. The patient was given topical anesthesia and then prepped and draped in the usual sterile fashion. The eye was entered at the 6 and 3 oclock positions. Intracameral Shugarcaine was injected into the anterior chamber followed by a dispersive viscoelastic. A continuous-tear curvilinear capsulorhexis was performed. The nucleus was hydrodissected and phacoemulsified. The cortex was evacuated using automated infusion and aspiration. A cohesive viscoelastic was injected into the capsular bag and a 22.5 diopter intraocular lens was inserted into the bag. Infusion and aspiration were used to evacuate the viscoelastic materials from the eye. The wounds were hydrated and the eye inflated to physiologic pressure using balanced salt solution. Approximately 0.25ml of a mixture of triamcinolone and moxifloxacin was injected trans-sclerally into the vitreous in the inferotemporal quadrant using a 30 gauge cannula. An additional 0.25ml of a mixture of triamcinolone and moxifloxacin was injected subconjunctivally in the superior quadrant for infection and inflammation prophylaxis. Wound integrity was checked with Weck-Lana sponges. The patient was taken from the operating room in good condition and given post-op instructions.
[2023-08-30 09:00] VITALS: BP 131/72
--- NOTE | 2023-08-30 10:53 | ANESTHESIA POST OP EVALUATION ---
Anesthesia Post Eval - Post Anesthesia Eval Vitals: Last Vital Signs Temp 36.3 C L 08/30/23 08:42 Pulse 62 08/30/23 08:58 Resp 16 08/30/23 08:58 BP 131/72 H 08/30/23 08:58 Pulse Ox 98 08/30/23 08:58 O2 Flow Rate CV Function Including HR & BP: Stable Pain Control: Satisfactory Nausea & Vomiting: Negative Mental Status: Baseline Respiratory Status: Airway Patent Hydration Status: Satisfactory Anesthesia Complications: None
== END 2023-08-30 06:38 | disposition home or self-care (01) ==
LOC: SDS 06:37
PROVIDERS: ATTEND Ophthalmology
DX: H25.812 Combined forms of age-related cataract, left eye (principal); E66.9 Obesity, unspecified; Z68.30 Body mass index [BMI] 30.0-30.9, adult; I10 Essential (primary) hypertension
CPT/HCPCS: 66984; A9270; J3490; J7120

== ENCOUNTER 2023-09-01 13:32 | Outpatient (CLI) | payer MEDICARE, OTHER ==
--- NOTE | 2023-09-04 13:08 | MRI Report ---
PROCEDURE: Ankle LT WO INDICATIONS: L ANKLE PAIN TECHNIQUE: Noncontrast Magnetic Resonance Imaging (MRI) of the ankle/hindfoot was performed utilizing the follow ing sequences: sagittal T1 spin echo, sagittal T2 fast spin echo with fat saturation, axial PD fast s pin echo, axial T2 fast spin echo with fat saturation, coronal T1 spin echo, and coronal T2 fast spin echo with fat saturation. COMPARISON: Left ankle and foot radiographs 08/10/2023 FINDINGS: Image quality: Excellent. Bones and joints: No acute osseous fracture. Osseous edema is seen at the plantar aspect of the heel adjacent to the pl elizabeth fascial origin from the small edematous plantar calcaneal enthesophyte. No hindfoot coalition. The ankle mortise is maintained. No osteochondral defect is seen at the talar dome. Mild degenerativ e changes are seen at the naviculocuneiform articulations. Small ganglion cysts are seen dorsal to th e talonavicular and navicular cuneiform articulations measuring up to 6 mm each. Medial structures: The deltoid ligament and the spring ligament complex are intact. There is mild distal posterior tibia lis tenosynovitis. The flexor digitorum longus and flexor hallucis longus tendons are intact. The pos terior tibial neurovascular bundle appears normal within the tarsal tunnel, without extrinsic mass ef fect. Lateral structures: The anterior and posterior distal tibiofibular ligaments are intact. Remote prior low-grade sprain of the anterior talofibular ligament. The calcaneofibular ligament and posterior talofibular ligament a re intact. The peroneus brevis and longus tendons are intact. The sinus tarsi demonstrates normal fat ty signal. Anterior structures: The tibialis anterior, extensor hallucis longus, and extensor digitorum longus tendons appear intact. Posterior and plantar structures: The Achilles tendon is intact. There is fluid signal at the origin of the central band of the plantar fascia with surrounding soft tissue and osseous edema is suspicious for partial tearing superimposed on chronic fasciitis. No acute osseous fracture. No disproportionate atrophy of the abductor digiti minimi muscle. IMPRESSION: 1.Focal high-grade partial tearing of the central band of the plantar fascia at its origin with surro unding soft tissue and osseous edema superimposed on moderate to severe chronic fasciopathy. No full- thickness tear is seen. No acute osseous fracture. 2.Mild distal posterior tibialis tenosynovitis. 3.Remote prior low-grade sprain of the anterior talofibular ligament. 4.Mild naviculocuneiform and talonavicular osteoarthrosis with small dorsal ganglion cysts. Reviewed by: Krystian Lozano MD on 09/04/2023 1:07 PM PDT Approved by: Krystian Lozano MD on 09/04/2023 1:07 PM PDT Station ID: [id number]
== END 2023-09-01 13:33 | disposition home or self-care (01) ==
LOC: DI 13:32
PROVIDERS: ATTEND Podiatrist
DX: S93.492A Sprain of other ligament of left ankle, initial encounter (principal); S96.812A Strain of other specified muscles and tendons at ankle and foot level, left foot, initial encounter; M19.072 Primary osteoarthritis, left ankle and foot; M67.472 Ganglion, left ankle and foot; M65.872 Other synovitis and tenosynovitis, left ankle and foot

== ENCOUNTER 2023-11-22 06:54 | Day surgery (SDC) | payer MEDICARE, OTHER ==
[2023-11-22] MEDS: LACTATED RINGERS 1,000 ML IV ONE ×2 (06:58→08:34)
[2023-11-22] MEDS: PROPARACAINE 0.5% OPHTH DROPS 15 ML ONE (07:06)
[2023-11-22] MEDS: KETOROLAC TROMETHAMINE 0.5% OPHTH DROPS 5 ML ONE (07:06)
[2023-11-22] MEDS: PHENYLEPHRINE 2.5% OPHTH 2 ML DROPS ONE (07:06)
[2023-11-22] MEDS: CYCLOPENTOLATE 1% OPHTH DROPS 2 ML ONE (07:24)
--- NOTE | 2023-11-22 07:26 | ANESTHESIA ---
Pre-Anesthesia VS, & Labs - Diagnosis R cataract - Procedure R extraction cataract with IOL Vital Signs: Temp Pulse Resp BP Pulse Ox O2 Flow Rate 36.4 C L 57 L 17 131/71 H 99 11/22/23 07:08 11/22/23 07:08 11/22/23 07:08 11/22/23 07:08 11/22/23 07:08 Height: 5 ft 5 in Weight (kg): 86 kg Body Mass Index: 31.5 BMI Classification: Obese - NPO >8 hours - Is Patient ?: No - Lab Results Lab results reviewed: Yes Home Medications and Allergies Ascorbic Acid [Vitamin C] 500 mg PO DAILY 03/19/17 Atorvastatin Calcium 40 mg PO DAILY 03/19/17 Losartan [Cozaar] 25 mg PO DAILY 03/19/17 Multivitamin [Multiple Vitamins] 1 each PO DAILY 03/19/17 Propranolol [Inderal] 20 mg PO BID 03/19/17 B Complx/C/Folic/Zinc/Cup Florez/E [Rvakbufjrnhx-Iywp-Fuvuty Tab] 1 each PO DAILY 08/29/23 Famotidine 40 mg PO QPM 08/29/23 Devon-3 Fatty Acids [Devon-3] 1,000 mg PO DAILY 08/29/23 Ubidecarenone [Co Q-10] 100 mg PO DAILY 08/29/23 Allergies/Adverse Reactions: Allergies Allergy/AdvReac Type Severity Reaction Status Date / Time Penicillins Allergy Rash Verified 08/29/23 13:14 tetracycline Allergy Rash Verified 08/29/23 13:14 Anes History & Medical History - Anesthetic History Anesthesia Complications: reports: No previous complications Family history of Anesthesia Complications: Denies Family history of Malignant Hyperthermia: Denies - Medical History Cardiovascular: reports: Hypertension, High cholesterol, Murmur Pulmonary: reports: None Gastrointestinal: reports: GERD Urinary: reports: None Neuro: reports: None Musculoskeletal: Endocrine/Autoimmune: reports: Other Blood Disorders: reports: None Skin: reports: None Smoking Status: Never smoker - Surgical History General: reports: Appendectomy, Colonoscopy Eyes Ears Nose Throat (EENT): reports: Tonsil/Adenoidectomy Gynecologic: reports: section, Hysterectomy Orthopedic: reports: Knee replacement Exam General: Alert, Oriented x3, Cooperative Dental: WNL Mouth Openin Fingerbreadth Neck Mobility: Normal Mallampati classification: II Thyromental Distance: 4-6 cm Respiratory: Lungs clear, Normal breath sounds, No respiratory distress Cardiovascular: Regular rate Neurological: Normal speech Mental/Cognitive Status: Alert/Oriented X3, Normal for patient Cognitive Status: Within normal limits Plan Anesthesia Type: MAC Consent for Procedure(s) Verified and Reviewed: Yes Code Status: Attempt Resuscitation ASA classification: 2-Mild systemic disease Is this case an emergency?: No
[2023-11-22] MEDS ORDERED: MIDAZOLAM 2 MG/2 ML VIAL ONE (07:42)
[2023-11-22] MEDS ORDERED: BRIMONIDINE 0.2% OPHTH DROPS 5 ML ONE (07:55)
[2023-11-22] MEDS ORDERED: TRIAMCIN/MOXIFLOX OPHTHALMIC 0.6 ML VIAL IO ONE (07:55)
[2023-11-22] MEDS ORDERED: BSS/LIDOCAINE/EPINEPHRINE 1 ML VIAL ONE (07:55)
[2023-11-22] MEDS ORDERED: EPINEPHrine 1 MG/ML AMP ONE (07:55)
[2023-11-22] MEDS ORDERED: TIMOLOL 0.5% OPHTH DROPS ONE (07:55)
[2023-11-22] MEDS: EPINEPHrine 1 MG/ML AMP IR ONE (08:22)
[2023-11-22] MEDS: BRIMONIDINE 0.2% OPHTH DROPS 5 ML OPTH ONE (08:22)
[2023-11-22] MEDS: TIMOLOL 0.5% OPHTH DROPS OPTH ONE (08:22)
[2023-11-22] MEDS: BSS/LIDOCAINE/EPINEPHRINE 1 ML SYRINGE IO ONE (08:22)
[2023-11-22] MEDS: VANCOMYCIN OPHTH (TOPICAL) 10 MG/ML SYRINGE TOP ONE (08:23)
[2023-11-22] MEDS: PROPARACAINE 0.5% OPHTH DROPS 15 ML RIGHTEYE ONE (08:23)
[2023-11-22] MEDS: TRIAMCIN/MOXIFLOX OPHTHALMIC 0.6 ML VIAL IO ONE (08:23)
--- NOTE | 2023-11-22 08:43 | OPERATIVE REPORT ---
Operative Report - Other Other Information/Narrative: Date of Surgery: 11/22/23 Preop Dx: Visually significant cataract right eye. Cataract surgery was performed in the left eye on . Postop Dx: Same Procedure: Phacoemulsification with posterior chamber intraocular lens implant right eye Surgeon: Dr. 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 Best corrected visual acuity was 20/20 with glare to 20/150 vision in the right eye. Indications for surgery were: - Difficulty seeing words on a computer screen - Difficulty reading - Difficulty seeing words, closed captions, or game scores on TV - Difficulty driving at night because of headlights from other vehicles - Difficulty with glare or bright lights in any situation The patient was consented at length concerning the risks and benefits of cataract surgery after which the patient expressed a desire to proceed with surgery. Operative Procedure: The patient was taken into OR#3 and placed under monitored anesthesia care. A surgical time-out was conducted confirming correct patient, correct procedure, and correct surgical site. The patient was given topical anesthesia and then prepped and draped in the usual sterile fashion. The eye was entered at the 6 and 3 oclock positions. Intracameral Shugarcaine was injected into the anterior chamber followed by a dispersive viscoelastic. A continuous-tear curvilinear capsulorhexis was performed. The nucleus was hydrodissected and phacoemulsified. The cortex was evacuated using automated infusion and aspiration. A cohesive viscoelastic was injected into the capsular bag and a 22.5 diopter intraocular lens was inserted into the bag. Infusion and aspiration were used to evacuate the viscoelastic materials from the eye. The wounds were hydrated and the eye inflated to physiologic pressure using balanced salt solution. Approximately 0.25ml of a mixture of triamcinolone and moxifloxacin was injected trans-sclerally into the vitreous in the inferotemporal quadrant using a 30 gauge cannula. An additional 0.25ml of a mixture of triamcinolone and moxifloxacin was injected subconjunctivally in the superior quadrant for infection and inflammation prophylaxis. Wound integrity was checked with Weck-Lana sponges. The patient was taken from the operating room in good condition and given post-op instructions.
[2023-11-22 09:05] VITALS: BP 140/59; O2SAT 98
--- NOTE | 2023-11-22 09:50 | ANESTHESIA POST OP EVALUATION ---
Anesthesia Post Eval - Post Anesthesia Eval Vitals: Last Vital Signs Temp 36 C L 11/22/23 08:54 Pulse 57 L 11/22/23 08:54 Resp 14 11/22/23 08:54 BP 140/59 H 11/22/23 08:54 Pulse Ox 98 11/22/23 08:54 O2 Flow Rate CV Function Including HR & BP: Stable Pain Control: Satisfactory Nausea & Vomiting: Negative Mental Status: Baseline Respiratory Status: Airway Patent Hydration Status: Satisfactory Anesthesia Complications: None
== END 2023-11-22 06:55 | disposition home or self-care (01) ==
LOC: SDS 06:54
PROVIDERS: ATTEND Ophthalmology
DX: H25.811 Combined forms of age-related cataract, right eye (principal); Z98.42 Cataract extraction status, left eye; E66.9 Obesity, unspecified; Z68.31 Body mass index [BMI] 31.0-31.9, adult
CPT/HCPCS: 66984; A9270; J3490; J7120